=== PATIENT | female | born 1965 | race Caucasian/White ===

== ENCOUNTER 2016-10-03 18:05 | Inpatient (IN) | payer OTHER ==
[~2016-10-03] VITALS: Ht 154.9 cm; Wt 50.8 kg
--- NOTE | ~2016-10-03 | DS ---
Unit #: [id number] #: [id number] Patient: ROSA GALVEZ [id number] [place] [address] [id number] MR#: [id number] NAME: ROSA GALVEZ. ROOM: [facility] Age: 51 Sex: F Admission Date: 10/03/2016 : 1965 Discharge Date: 10/05/2016 Attending Physician: Abdon Pinedo M.D. Primary Care Physician: Primary Care Physician No DISCHARGE SUMMARY REASON FOR ADMISSION The patient is a 51-year-old white female with a history of Nikolas's disease. She is admitted with increasing depressive mood and mood lability. HOSPITAL COURSE The patient was admitted to the [address] [place] [address] Unit and restarted on previously prescribed medications including Neurontin, Thorazine, Nuedexta, Klonopin, Keppra, Flexeril, and Vistaril. She complained of some pain on 10/04/2016, and at that time demanded discharge from the hospital. This physician asked the patient to remain in the hospital, but she became very angry and required a brief period of seclusion. She did, however, seem somewhat improved when told that she would receive Lortab for pain related to her [place]'s disease. During her stay in the hospital the patient was noted to be exhibiting significant neuromuscular symptoms related to that disorder. By 10/05/2016, the patient had sustained progress. She had required further p.r.n. but was calm and cooperative with this physician. She continued to request discharge, and it was not felt that she would benefit from remaining in the hospital any further in the absence of suicidal ideation, and discharge was ordered. FINAL DIAGNOSES 1. Schizoaffective disorder. 2. [place]'s disease. 3. Cocaine use disorder by history. 4. Seizure disorder. DISPOSITION ON DISCHARGE The patient was discharged on the following medications: 1. Thorazine 50 mg 4 times daily for mood stabilization. 2. Klonopin 0.5 mg twice daily for anxiety. 3. Keppra 500 mg twice daily for seizure disorder. 4. Flexeril 10 mg 3 times daily for muscle relaxation. 5. Vistaril 50 mg q. 4 hours p.r.n. anxiety. 6. Nuedexta 10/20 twice daily for pseudobulbar affect. 7. Neurontin 800 mg 4 times daily for pain. 8. Lortab 5/325, 1 tablet q. 4 hours p.r.n. pain. DIET AND ACTIVITY No dietary or physical restrictions were placed on the patient at the time of discharge. FOLLOWUP Followup will take place through the [facility] Unit #: [id number] #: [id number] Patient: MARIA EJOSEPHRADHAROSACarmen solis PROGNOSIS Remains guarded, and in the long-term grave. Dictated by... Betina Saucedo TD: 10/06/2016 07:13 JOB #: [id number] DISCHARGE SUMMARY Page 1 of 1 X Abdon Pinedo MD X DISCHARGE SUMMARY
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
--- NOTE | ~2016-10-03 | HP ---
Unit #: [id number] #: [id number] Patient: ROSA GALVEZ [id number] [place] [address] [id number] MR#: [id number] NAME: ROSA GALVEZ. ROOM: [facility]6 Age: 51 Sex: F Admission Date: 10/03/2016 : 1965 Attending Physician: Abdon Pinedo M.D. Admitting Physician: Abdon Pinedo M.D. Primary Care Physician: Primary Care Physician No HISTORY AND PHYSICAL HISTORY OF PRESENT ILLNESS Blanquita is a 51 year old admitted to [address] [place] [address] with increased paranoia and delusions secondary to her drug use which include methamphetamine and spice. She is a poor historian so her history is taken from her chart and exam is very limited. She has had other admissions to this facility PAST MEDICAL HISTORY 1. Nikolas's disease. 2. Seizure disorder. 3. Degenerative disc disease. a. Chronic pain. 4. History of CHI. 5. History of hepatitis B or C (?). 6. Sick sinus syndrome. a. Pacemaker placed. PAST SURGICAL HISTORY 1. As above. 2. Tubal ligation. 3. PE tubes as a child. 4. T & A. ALLERGIES Haldol, Ativan, Depakote, Risperdal, Zyprexa. SOCIAL HISTORY She smokes, drinks, has a history of poly-illicit substance abuse to include IV drugs. FAMILY HISTORY Medically not known. REVIEW OF SYSTEMS She does not answer any questions appropriately. There are no reports of nausea, vomiting or diarrhea. She has had not cough or increased temperature. CURRENT MEDICATIONS 1. Vicodin 5/325 1 tab q 4 hours p.r.n. 2. Neurontin 800 mg q.i.d. 3. Vistaril p.r.n. 4. Milk of Magnesia p.r.n. 5. Maalox p.r.n. Unit #: [id number] #: [id number] Patient: ROSA GALVEZ 6. Tylenol p.r.n. 7. Flexeril 10 mg t.i.d. 8. Keppra 500 mg b.i.d. 9. Klonopin 0.5 mg b.i.d. 10. Thorazine 50 mg q.i.d. PHYSICAL EXAMINATION GENERAL: Alert, well-nourished, lying in bed, very somnolent, in no apparent distress. VITAL SIGNS: Blood pressure 144/56, heart rate 80, respirations 16, temperature 98.6. WEIGHT: 112. HEIGHT: 5 foot 1 inches. SKIN: Unable to assess. HEENT: Unable to assess. NECK: Unable to assess. HEART: Rate and rhythm is regular. LUNGS: Unable to assess. ABDOMEN: Soft, nontender. : Unable to assess. EXTREMITIES: Unable to assess. NEUROLOGICAL: Unable to assess. IMPRESSION 1. Psychiatric admission. 2. [place]'s disease. RECOMMENDATIONS PSYCHIATRIC: Per psychiatrist. MEDICAL: I see no contraindications to participating in facility's activities. MEDICAL PROGNOSIS Poor considering her diagnosis of [place]. MEDICAL CONDITION Stable. Dictated by... Maddison Aguilera P.A.-C. for Betina Cannon/felipa TD: 10/04/2016 21:22 JOB #: [id number] Unit #: [id number] #: [id number] Patient: ROSA GALVEZ HISTORY AND PHYSICAL Page 1 of 1 X Maddison Aguilera HISTORY AND PHYSICAL
[~2016-10-03 18:05] MED LIST: ALBUTEROL17 GM; ALBUTEROL17 GM INH; AZITHROMYCIN250 MG PO; BROMFED DM COU118 ML PO; FLEXERIL10 MG PO; HYDROXYZINE HCL50 MG PO; KLONOPIN0.5 MG PO; NEURONTIN300 MG PO; PREDNISONE5 MG PO; THORAZINE PO
== END 2016-10-05 15:19 | disposition home or self-care (01) | DRG 885 ==
LOC: P1S 20:48
DX: F25.9 Schizoaffective disorder, unspecified (principal); G10 Huntington's disease; F48.2 Pseudobulbar affect; G40.909 Epilepsy, unspecified, not intractable, without status epilepticus
CPT/HCPCS: J2060; J3486